=== PATIENT | male | born 1955 ===

== ENCOUNTER 2017-12-09 13:41 | Emergency (ER) ==
--- NOTE | 2017-12-09 22:50 | EKG REPORT ---
SEVERITY:- ABNORMAL ECG - SINUS RHYTHM INFERIOR INFARCT, AGE INDETERMINATE CONSIDER ANTERIOR INFARCT BORDERLINE PROLONGED QT INTERVAL : Confirmed by: Khris Ludwig 09-Dec-2017 22:50:[id number]
== END 2017-12-09 15:36 | disposition left against medical advice (07) ==
LOC: ER 13:41
DX: Z53.21 Procedure and treatment not carried out due to patient leaving prior to being seen by health care provider (principal); R10.9 Unspecified abdominal pain
CPT/HCPCS: 93005; 93010